=== PATIENT | male | born 1995 | race African-American/Black ===

== ENCOUNTER 2019-05-16 09:12 | Day surgery (SDC) | payer OTHER ==
[2019-05-16] MEDS ORDERED: SODIUM CHLORIDE 0.9% 1000 ML 1,000 ML IV SCH (11:00)
--- NOTE | 2019-05-16 11:49 | Anesthesia Day of Surgery ---
Anesthesia Day of Surgery - Day of Surgery Patient Examined: Yes Patient H&P Reviewed: Yes Patient is NPO: Yes
--- NOTE | 2019-05-16 11:50 | Anesthesia Consultation ---
Anesthesia Consult and Med Hx Date of service: 05/16/19 - Airway Anesthetic Teeth Evaluation: Good ROM Head & Neck: Adequate Mental/Hyoid Distance: Adequate Mallampati Class: Class II Intubation Access Assessment: Good - Pre-Operative Health Status ASA Pre-Surgery Classification: ASA1 Proposed Anesthetic Plan: MAC - Endocrine Hx Liver Disease: Yes (Enlarged liver on scan)
[2019-05-16] MEDS ORDERED: PROPOFOL 200 MG/20 ML VIAL IV ONE (12:16)
[2019-05-16] MEDS ORDERED: ONDANSETRON 4 MG/2 ML INJ ONE (12:19)
[2019-05-16] MEDS ORDERED: fentaNYL 100 MCG/2 ML INJ ONE (12:19)
--- NOTE | 2019-05-16 12:42 | Procedure Note ---
Date of procedure: 05/16/19 Pre-op diagnosis: Dyspepsia/ Nausea Post-op diagnosis: other (Mild to Moderate Distal Erosive Esophagitis/Gastritis/R/O Celiac Disease/ No Peptic Ulcer disease noted) Procedure: EGD with Biopsy Anesthesia: MAC Surgeon: GEOVANNA ABRAHAM Estimated blood loss: minimal Pathology: list Disposition: same day (Treat with PPI and prn Zofran. Avoid aspirin and NSAID for 4 days; otherwise resume home medication. Will check labs for Hepatitis B and C as an Oupatient.)
[2019-05-16 12:55] VITALS: BP 109/67
--- NOTE | 2019-05-16 14:35 | Operative Report ---
PROCEDURE: Esophagogastroduodenoscopy with biopsy. INDICATIONS: This is a 24-year-old male of [facility] heritage, who has been complaining of dyspeptic symptoms of nausea and also thinks that he may have had some GI bleeding. EGD was done to assess for any significant upper GI pathology accounting for his symptoms. DESCRIPTION OF PROCEDURE: The procedure was done after getting informed consent with MAC anesthesia. Instrument was passed through the hypopharynx into the esophagus, which showed mild to moderate erosive esophagitis. Stomach showed gastritis. The pylorus is patent. The duodenum in the first and second portion appeared normal. There was no evidence of any peptic ulcer disease and no evidence of any GI bleeding. Biopsy was done from the second part of the duodenum to rule out for celiac disease. Additional biopsy was also done from the gastric antrum, gastric body and angular incisura to rule out for H. pylori and atrophic gastritis. Biopsy, in addition, was also done from the distal esophagus to assess for the severity of the mild to moderate erosive esophagitis. There was minimal bleeding from the biopsy sites. No complications associated with the procedure. ASSESSMENT: Dyspepsia, nausea, mild to moderate distal erosive esophagitis, gastritis, rule out celiac disease. No peptic ulcer disease noted. No evidence of gastrointestinal bleeding noted. PLAN: To treat the patient with PPI, p.r.n. dose of Zofran. Have the patient avoid aspirin and aspirin-related products for the next few days and follow up in the office in 1-2 weeks' time. The patient has had a CT scan done previously, which showed mild hepatomegaly. The patient will be checked, because of his Heritage, for hepatitis B and hepatitis C, when he follows up in the office. He also gives a family history of diabetes mellitus and lately has been having polyuria and his hemoglobin A1c will also be checked. Again, procedure was done in the GI lab with the assistance of the GI lab team, which included REBEL, Melissa Rao, and Sherie salvador, and with the assistance of Anesthesia. JOB# [id number] SHEREEN/HELADIO
--- NOTE | 2019-05-16 23:10 | Post Anesthesia Evaluation ---
- Post Anesthesia Evaluation Patient Participated: Yes Airway Patent: Yes Stable Respiratory Function: Yes Nausea/Vomiting: No Temp > 96.8F: Yes Pain Manageable: Yes Adequeate Hydration: Yes Anesthesia Complications: No Block Receding Appropriately: Not Applicable Patient on Ventilator: No
== END 2019-05-16 09:13 | disposition home or self-care (01) ==
LOC: GIO 09:12
DX: K29.50 Unspecified chronic gastritis without bleeding (principal); B96.81 Helicobacter pylori [H. pylori] as the cause of diseases classified elsewhere; K31.89 Other diseases of stomach and duodenum; K20.9 Esophagitis, unspecified; Z79.899 Other long term (current) drug therapy; Z88.8 Allergy status to other drugs, medicaments and biological substances
CPT/HCPCS: 43239; 88305; 88342; J2405; J2704; J3010; J7030